=== PATIENT | male | born 1995 | race Caucasian/White ===

== ENCOUNTER 2017-10-27 06:06 | Emergency (ER) | payer OTHER ==
[2017-10-27] MEDS: LIDOCAINE/MYLANTA 40 ML BTL PO (06:51)
[2017-10-27] MEDS ORDERED: BELLADONNA/PHENOBARBITAL 5ML CUP PO (07:00)
[2017-10-27] MEDS: BELLADONNA/PHENOBARBITAL 5ML CUP PO (07:10)
== END 2017-10-27 08:06 | disposition home or self-care (01) ==
LOC: FTE 06:06
DX: R10.84 Generalized abdominal pain (principal)
CPT/HCPCS: 74019; 99283-25